=== PATIENT | male | born 1985 | race Caucasian/White ===

== ENCOUNTER 2022-02-01 09:28 | Emergency (ER) | payer MEDICARE, OTHER ==
[2022-02-01] MEDS ORDERED: IBUPROFEN800 MG PO (11:51)
== END 2022-02-01 12:32 | disposition home or self-care (01) ==
LOC: ER1 09:28
DX: S80.02XA Contusion of left knee, initial encounter (principal); S80.12XA Contusion of left lower leg, initial encounter; I10 Essential (primary) hypertension; E11.9 Type 2 diabetes mellitus without complications; I25.10 Atherosclerotic heart disease of native coronary artery without angina pectoris; J45.909 Unspecified asthma, uncomplicated; W19.XXXA Unspecified fall, initial encounter
CPT/HCPCS: 73564; 73590; 73610; 73630; 99283

== ENCOUNTER 2022-02-14 11:56 | Emergency (ER) | payer MEDICARE, OTHER ==
[~2022-02-14 11:56] MED LIST: IBUPROFEN800 MG PO
[2022-02-14 12:15] LABS: HEMOGLOBIN 14.4 gm/dl (14.0-17.5); RED BLOOD COUNT 5.04 M/UL (4.20-5.50); WHITE BLOOD COUNT 8.8 K/UL (4.5-11.0)
[2022-02-14 12:58] LABS: BUN/CREATININE RATIO 13 (0-10)
[2022-02-14] MEDS ORDERED: LOW DOSE ASPIRI81 MG PO (14:42)
== END 2022-02-14 15:07 | disposition home or self-care (01) ==
LOC: ER1 11:56
DX: E11.40 Type 2 diabetes mellitus with diabetic neuropathy, unspecified (principal); Z86.73 Personal history of transient ischemic attack (TIA), and cerebral infarction without residual deficits; Z51.81 Encounter for therapeutic drug level monitoring
CPT/HCPCS: 70450; 70496; 70498; 71045; 80053; 81001; 82550; 82553; 84484; 85025; 85610; 85730; 93005; 96374; 99285; J2405; Q9967